=== PATIENT | male | born 1955 | race Caucasian/White ===

== ENCOUNTER → 2018-06-17 | Outpatient (CLI) | payer OTHER ==
--- NOTE | 2018-06-17 14:04 | KCIC ---
Limited abdominal ultrasound without comparison for hematoma, left lateral lower abdominal lump and bruise. FINDINGS: Targeted ultrasound of the left lower quadrant of the abdomen in the area of interest is performed using grayscale and color techniques. There is a noncompressible heterogeneous ovoid probably hypoechoic fluid collection measuring 3.5 x 1.2 x 2.2 cm. This could reflect a hematoma or abscess. No internal vascularity is seen. No adjacent subcutaneous edema. IMPRESSION: 1. 3.5 cm complex fluid collection in the left lower abdominal wall. Considerations include hematoma versus abscess, with hematoma being favored based on clinical history and the absence of adjacent subcutaneous edema. Electronically signed by: Mauro Triana MD (06/17/2018 2:02 PM) [id number]
== END | disposition home or self-care (01) ==
LOC: KCIC US 07:50
PROVIDERS: ATTEND Nurse Practitioner Family
DX: S30.1XXA Contusion of abdominal wall, initial encounter (principal); R19.04 Left lower quadrant abdominal swelling, mass and lump; X58.XXXA Exposure to other specified factors, initial encounter; Y93.89 Activity, other specified; Y92.89 Other specified places as the place of occurrence of the external cause; Y99.8 Other external cause status
CPT/HCPCS: 76705